=== PATIENT | male | born 1960 | race Hispanic/Latino ===

== ENCOUNTER 2017-04-05 10:04 | Emergency (ER) | payer BC ==
--- NOTE | 2017-04-05 11:08 | Cat Scan Report ---
Cranial CT without contrast. History: Dizziness/near syncope. Findings: There is no evidence of acute hemorrhage or infarct. The ventricles are normal in size and contour. There is an area of mixed density in the right posterior frontal lobe which abuts the falx. There is suggestion of serpiginous structures within it. This needs further evaluation with intravenous contrast. There is no mass effect. This measures approximately 1.9 x 2.7 CMS. There are no extra-axial collections. The cortical sulci are normal. Impression: Intra-axial lesion in the right posterior frontal lobe which could represent a mass or AVM. Repeat CT with contrast or MRI with and without contrast are recommended.
[2017-04-05] MEDS ORDERED: NACL 0.9% 1000 ML 1,000 ML IV ONE (11:10)
[2017-04-05] MEDS ORDERED: TORADOL IV ONE (11:10)
[2017-04-05 11:16] LABS: Basophils % (Auto) 0.6 % (0.0-1.8); Eosinophils % (Auto) 2.3 % (0.0-4.3); Hematocrit 45.1 % (35.5-45.6); Mean Corpuscular HGB Conc 33 % (32-34); Mean Corpuscular Hemoglobin 31 pg (28-32); Mean Corpuscular Volume 94 fl (84-94); Platelet Count 265 K/mm3 (140-440); Red Blood Count 4.79 M/mm3 (3.65-5.03); Red Cell Distribution Width 13.5 % (13.2-15.2); White Blood Count 3.7 K/mm3 (4.5-11.0)
[2017-04-05 11:17] LABS: Anion Gap 20 mmol/L; Blood Urea Nitrogen 15 mg/dL (9-20); Calcium 9.1 mg/dL (8.4-10.2); Carbon Dioxide 25 mmol/L (22-30); Chloride 102.3 mmol/L (98-107); Glucose 92 mg/dL (75-100); Potassium 4.5 mmol/L (3.6-5.0); Sodium 143 mmol/L (137-145)
[2017-04-05] MEDS ORDERED: NACL ONE (11:59)
--- NOTE | 2017-04-05 12:58 | Cat Scan Report ---
Cranial CT with contrast. Findings: The study is read in conjunction with the precontrast study performed earlier today. In the medial aspect of the posterior left frontal lobe, there is opacification of several serpiginous vessels which extend to the falx. The lesion measures approximately 2 x 3.2 cm, and there is no mass effect. No additional enhancing lesions are identified. Impression: Right hemispheric vascular abnormality as described consistent with venous malformation or AVM.
--- NOTE | 2017-04-05 13:00 | Cat Scan Report ---
CT of the neck with IV contrast. History: Neck pain. Findings: The parotid and submandibular glands appear normal there is no evidence of cervical adenopathy. No soft tissue masses or abnormal fluid collections are seen. There are no glottic or subglottic abnormalities. The thyroid is unremarkable. Impression: Normal study.
--- NOTE | 2017-04-05 16:31 | Emergency Department Report ---
ED Headache HPI - General Chief Complaint: Dizziness Stated Complaint: FEELING FAINT/DIZZY Time Seen by Provider: 04/05/17 10:28 Source: patient - History of Present Illness Timing/Duration: 1 hour Quality: moderate Head Injury Location: frontal, temporal, occipital Recent Head Trauma: frequent headaches Associated Symptoms: confusion, weakness Allergies/Adverse Reactions: Allergies Penicillins Allergy (Verified 04/05/17 10:17) Itching ED Review of Systems ROS: Stated complaint: FEELING FAINT/DIZZY Other details as noted in HPI Comment: All other systems reviewed and negative ED Past Medical Hx - Past Medical History Previous Medical History?: No - Surgical History Additional Surgical History: hernia repair - Social History Smoking Status: Never Smoker Substance Use Type: None ED Physical Exam - General Limitations: No Limitations General appearance: alert, in no apparent distress - Head Head exam: Present: atraumatic, normocephalic - Eye Eye exam: Present: normal appearance - ENT ENT exam: Present: mucous membranes moist - Neck Neck exam: Present: normal inspection - Respiratory Respiratory exam: Present: normal lung sounds bilaterally. Absent: respiratory distress - Cardiovascular Cardiovascular Exam: Present: regular rate, normal rhythm. Absent: systolic murmur, diastolic murmur, rubs, gallop - GI/Abdominal GI/Abdominal exam: Present: soft, normal bowel sounds - Rectal Rectal exam: Present: deferred - Extremities Exam Extremities exam: Present: normal inspection - Back Exam Back exam: Present: normal inspection - Neurological Exam Neurological exam: Present: alert, oriented X3 - Psychiatric Psychiatric exam: Present: normal affect, normal mood - Skin Skin exam: Present: warm, dry, intact, normal color. Absent: rash ED Course Vital Signs 04/05/17 04/05/17 04/05/17 10:14 10:29 11:29 Temperature 97.8 F Pulse Rate 84 85 Respiratory 16 16 18 Rate Blood Pressure 151/103 Blood Pressure 146/96 [Right] O2 Sat by Pulse 99 99 98 Oximetry 04/05/17 04/05/17 12:10 14:48 Temperature Pulse Rate 84 86 Respiratory 16 16 Rate Blood Pressure Blood Pressure 135/92 143/90 [Right] O2 Sat by Pulse 97 99 Oximetry ED Medical Decision Making - Lab Data Result diagrams: 04/05/17 10:42 04/05/17 10:42 - EKG Data Interpretation: normal EKG - Radiology Data Radiology results: report reviewed, image reviewed - Medical Decision Making Patient doing well. ct head with contrast with 2 x 4 cm AVM, called neurosurgery and agree with plan fro admission. Critical care attestation.: If time is entered above; I have spent that time in minutes in the direct care of this critically ill patient, excluding procedure time. ED Disposition Clinical Impression: AVM (arteriovenous malformation) brain Disposition: [id number] ANOTHER TYPE HLTHCARE Is pt being admited?: No Does the pt Need Aspirin: No Condition: Good Referrals: PRIMARY CARE, [Primary Care Provider] - 3-5 Days Time of Disposition: 16:31
[2017-04-05] MEDS ORDERED: ATIVAN ONE (16:53)
[2017-04-05] MEDS ORDERED: ATIVAN IV ONE (17:07)
[2017-04-05 18:37] VITALS: BP 132/69
--- NOTE | 2017-04-05 19:22 | Magnetic Resonance Report ---
FINAL REPORT EXAM: MR BRAIN WO/W CON HISTORY: AVM? TECHNIQUE: Multi sequence multi planar MR images obtained of the brain prior to and following intravenous administration gadolinium contrast PRIORS: CT scan of the head from 04/05/2017. FINDINGS: There is no midline shift. Lateral ventricles and cortical sulci are within normal limits for size. The cerebellum and brainstem appear within normal limits. There is a conglomeration at of flow voids in the medial aspect of the right parietal lobe that measures approximately 2.2 x 2.8 x 2.8 centimeters. This correlates with the enhancing structures in the CT scan from 04/05/2017. There is suggestion of arterial feeding vessel from the anterior cerebral artery. Venous drainage is not fully characterized this exam, but there is suggestion of superficial and deep venous drainage. There is a subcentimeter focus of hyperintense FLAIR signal in the white matter of the left parietal lobe. Orbits appear fairly symmetric. Paranasal sinuses appear clear. The craniocervical junction appears normal. IMPRESSION: 1. There is a lesion in the right parietal lobe consistent with arterial venous malformation as described above. This can be further characterized with catheter directed angiography. Findings correlate with those of the prior study from 04/05/2017. 2. There is a focus of hyperintense FLAIR signal in left parietal lobe. This is a nonspecific finding. It may be related to chronic ischemic change from small vessel disease.
== END 2017-04-05 18:37 | disposition other institution (70) ==
LOC: ED 10:04
DX: Q28.2 Arteriovenous malformation of cerebral vessels (principal); Z88.0 Allergy status to penicillin
CPT/HCPCS: 36415; 70450; 70460; 70491; 70553; 80048; 84443; 84484; 85025; 93005; 93010; 96361; 96374; 96375; 99285; A9577; J1885; J2060; J7030; Q9967